=== PATIENT | male | born 1975 | race Caucasian/White ===

== ENCOUNTER 2016-09-12 08:35 | Day surgery (SDC) | payer MEDICAID ==
--- NOTE | 2016-09-12 11:39 | Operative Note ---
Endoscopy Report Date: 09/12/16 Preoperative diagnosis: LEFT lower quadrant pain, epigastric pain, constipation, weight loss. Procedure Type of procedure: 1. Esophagogastroduodenoscopy with biopsies. 2. Total colonoscopy terminal ileum with polypectomy by snare and biopsies. Indications: Patient is a 41-year-old white male referred from [facility] initially for evaluation for possible colonoscopy. He is accompanied by his who gives a large portion of the history. For about 2 years he has had an unusual constellation of symptoms. Symptoms have gotten significantly more severe recently. He describes a sore tender area in the LEFT lower abdomen. He states that he has to massage this area in order to have a bowel movement and in order to urinate. His symptoms are worse after work and quite lifestyle limiting. After returning from work he has prolonged time when he has to massage his abdomen. He often has discomfort in the epigastrium as well. He has significant amount of belching and bloating. He often states that he has to sit in a warm bath for quite a prolonged period of time. He's had alteration in the character between dull soreness and sharp burning pain. Patient has lost weight and is unable to gain weight despite eating to do so. He initially had been sent for evaluation for possible colonoscopy however with the symptoms he had a CT scan performed yesterday prior to his appointment. This is relatively unremarkable but there is some findings of possible thickening in the antrum and duodenum consistent with gastroduodenitis potentially. There is no evidence of any hernia. Of note, the patient's father had some sort of intestinal surgery last year and developed multisystem organ failure ultimately leading to his . It is unclear as to the etiology. Plan was made to proceed with upper endoscopy and colonoscopy. Also of note, the patient was scheduled for a urology consultation due to the urinary retention symptoms. Consent was obtained and patient was taken to same-day surgery endoscopy procedure room. He was positioned in a lateral decubitus position. Achievement of adequate sedation was somewhat difficult initially. Please note that for the duration of both procedures he required 200 g fentanyl and 22 mg Versed. Ultimately Olympus endoscope was inserted via the oropharynx. Esophagus appeared normal for the majority. The distal esophagus there was a very small erosion and retroflexion within the stomach revealed a small to moderate hiatal hernia gastric antral mucosal biopsy was obtained for CLOtest for H. pylori. Duodenum was unremarkable. A couple biopsies were obtained to rule out microscopic disease. Several distal esophageal biopsies were obtained to rule out Angulo's esophagus. Scope was withdrawn. Next patient was repositioned for colonoscopy. He was noted to have significant prolapsing hemorrhoids. Variable stiffness Olympus colonoscope was inserted via the anus. It was advanced to the cecum without significant difficulty. Colonoscope was advanced into the terminal ileum which appeared grossly normal. It was slowly withdrawn through the colon. Random colon biopsies differentiating RIGHT and LEFT were obtained using cold biopsy forceps. There was a subtle possible polyp in the ascending colon and this was biopsied and removed in a piecemeal fashion using cold biopsy forceps and sent as ascending colon biopsy. It was a pedunculated erythematous polyp in the sigmoid colon removed with hot snare. There were a couple of subtle hyperplastic appearing polyps in the rectosigmoid region removed with cold biopsy forceps. Retroflexion revealed internal hemorrhoids. Findings: 1. Distal esophagitis 2. Hiatal hernia 3. Pedunculated sigmoid polyp 4. Possible hyperplastic polyps 5. Prolapsing hemorrhoids Recommendations: May benefit from antireflux medication pending the biopsy results on upper endoscopy. No source for his symptoms on upper endoscopy or colonoscopy regarding the LEFT lower quadrant pain. However, given the polyp likely plan for repeat colonoscopy in 3-5 years. at [id number]
[2016-09-12 14:18] VITALS: BP 111/72
== END 2016-09-12 12:40 | disposition home or self-care (01) ==
LOC: SDC 08:35
PROVIDERS: Surgery
PROC: 0DBN8ZX Excision of Sigmoid Colon, Via Natural or Artificial Opening Endoscopic, Diagnostic (ICD-10-PCS; 2016-09-12)
PROC: 0DBK8ZX Excision of Ascending Colon, Via Natural or Artificial Opening Endoscopic, Diagnostic (ICD-10-PCS; 2016-09-12)
PROC: 0DBG8ZX Excision of Left Large Intestine, Via Natural or Artificial Opening Endoscopic, Diagnostic (ICD-10-PCS; 2016-09-12)
PROC: 0DBF8ZX Excision of Right Large Intestine, Via Natural or Artificial Opening Endoscopic, Diagnostic (ICD-10-PCS; 2016-09-12)
PROC: 0DB38ZX Excision of Lower Esophagus, Via Natural or Artificial Opening Endoscopic, Diagnostic (ICD-10-PCS; principal; 2016-09-12 09:00)
DX: R10.32 Left lower quadrant pain (principal); R63.4 Abnormal weight loss; D12.2 Benign neoplasm of ascending colon; D12.5 Benign neoplasm of sigmoid colon; K63.5 Polyp of colon; K64.8 Other hemorrhoids; K22.10 Ulcer of esophagus without bleeding; K44.9 Diaphragmatic hernia without obstruction or gangrene; R10.13 Epigastric pain

== ENCOUNTER → 2017-04-25 | Outpatient (CLI) | payer MEDICAID ==
[~2017-04-25] MED LIST: FAMOTIDINE 20MG20 MG PO; OMEPRAZOLE20 MG PO; POLYOX95%
[2017-04-25 13:02] LABS: HEMOGLOBIN 15.4 g/dL (14.1-18.0); LYMPH # 2.1 K/mm3 (0.7-4.5); LYMPH % 26.7 % (10-50)
[2017-04-25 13:30] LABS: BUN 15 mg/dL (7-18)
[2017-04-25 13:34] LABS: GFR (ESTIMATED) 93 ML/MIN (>60)
== END ==
LOC: LAB 12:45
PROVIDERS: Internal Medicine
DX: R14.3 Flatulence (principal)